=== PATIENT | male | born 1950 | race Caucasian/White ===

== ENCOUNTER 2016-10-27 07:45 | Day surgery (SDC) | payer MEDICARE, BC ==
[~2016-10-27 07:45] MED LIST: Lactated Ringers 1,000 ML IV SCH
[2016-10-27] MEDS: ceFAZolin 2 GM in Premix Bag 1 BAG IV ONE ×2 (09:16→09:17)
[2016-10-27] MEDS ORDERED: Ondansetron 4 MG/2 ML SDV IVPUSH ONE (09:20)
[2016-10-27] MEDS ORDERED: Propofol 200 MG/20 ML SDV IV ONE (09:20)
[2016-10-27] MEDS ORDERED: Lidocaine 2% 100 MG/5 ML Syringe IVPUSH ONE (09:20)
[2016-10-27] MEDS ORDERED: fentaNYL 100 MCG/2 ML SDV IV ONE (09:20)
[2016-10-27] MEDS ORDERED: Midazolam 1 MG/ML 2 ML SDV IV ONE (09:20)
[2016-10-27] MEDS ORDERED: Morphine 10 MG/ML Syringe IVPUSH ONE (09:20)
[2016-10-27] MEDS ORDERED: Bupivacaine 0.5%/EPINEPHrine 1:200,000 50 ML MDV ONE (10:05)
[2016-10-27 13:37] VITALS: BP 111/61
--- NOTE | 2016-10-27 19:38 | OR ---
DATE OF OPERATION: 10/27/2016 SURGEON: Dakotah Yin MD PREOPERATIVE DIAGNOSIS: Scar tissue and suture irritation, right knee status post total knee arthroplasty approximately five months. Preoperatively, this gentleman states he had pain in the inferior medial aspect of the knee that was present on palpation and along the suture line for the medial capsule repair. Despite conservative care, he has not responded well, so we are going to remove the sutures which were placed. The sutures were Ethibond. The patient understands the risks, complications, prognosis, and expectations in the postoperative course and also is aware that this may not alleviate his discomfort completely. DESCRIPTION OF PROCEDURE: The patient was taken to the operating room, placed on the operating room table in supine position. General anesthetic was then administered. Prior to this, 2 g of Ancef were given IV. The patient had a tourniquet placed around the right thigh near the inguinal area. Right lower extremity was then elevated and the tourniquet was inflated to 250 mmHg pressure after sterile ChloraPrep had been performed from the inferior margin of the tourniquet to the tip of the toes. Upon completion of the sterile ChloraPrep and drape, the patient's incision that was made previously was dissected through. We started inferiorly and used approximately half of the incision. Subcutaneous dissection was carried out and two large sutures were noted from the medial aspect and the capsular region going over to the patellar tendon area. These were removed without difficulty. Another suture was also identified and this was removed. The scar tissue was noted in the inferior aspect where he had a previous corticosteroid injection and this was removed without difficulty. This patient had extensive scarring between the patella and subcutaneous tissue that was a result of his slow progress in physical therapy. We loosened all the scar tissue in a circumferential manner inferiorly and superiorly, medially and laterally, so that there was no binding of the patellar tendon or the patella. Thorough irrigation was carried out. We then injected Marcaine with epi and placed a small amount of Gel-Foam in the area we did the capsular release. 0 Vicryl was placed in the subcutaneous tissue, 2-0 superficially, and then mao for skin. Skin was cleansed and dried and sterile dressings applied. Procedure performed as listed above. COMPLICATIONS: None. ESTIMATED BLOOD LOSS: Approximately 200 mL. Excision of scar tissue and retained sutures 1 1/2 x 1 1/2 inches, status post right total knee arthroplasty inferior medial aspect on a capsular closure. /[id number] FELICE/JACKLYN YAO
== END 2016-10-27 12:39 | disposition home or self-care (01) ==
LOC: FB.SDS 07:45
PROVIDERS: ATTEND Orthopaedic Surgery
DX: T85.848A Pain due to other internal prosthetic devices, implants and grafts, initial encounter (principal); L90.5 Scar conditions and fibrosis of skin; I10 Essential (primary) hypertension; Z96.651 Presence of right artificial knee joint; Z88.8 Allergy status to other drugs, medicaments and biological substances; Z79.82 Long term (current) use of aspirin; Z79.84 Long term (current) use of oral hypoglycemic drugs; Z79.899 Other long term (current) drug therapy; Z90.49 Acquired absence of other specified parts of digestive tract; Z98.890 Other specified postprocedural states; Z87.891 Personal history of nicotine dependence; Z72.0 Tobacco use
CPT/HCPCS: 01320; 10120; 82962; J0690; J2250; J2270; J2405; J2704; J3010; J7120

== ENCOUNTER 2020-04-04 16:27 | Emergency (ER) | payer MEDICARE, BC ==
[2020-04-04] MEDS ORDERED: methylPREDNISolone Acetate 40 MG/ML SDV IM ONE (16:53)
--- NOTE | 2020-04-04 17:27 | EDM.PDOC ---
ED HPI GENERAL MEDICAL PROBLEM - General Chief Complaint: Lower Extremity Injury/Pain Stated Complaint: TOE ON RIGHT FOOT HURTING Time Seen by Provider: 04/04/20 17:00 Source of Information: Reports: Patient History Limitations: Reports: No Limitations - History of Present Illness INITIAL COMMENTS - FREE TEXT/NARRATIVE: Patient presented to the ED because of left 2nd toe pain from a previous trauma which was surgically repaired. Every 6 month he has a depomedrol injection to that toe and pain relief usually last for 6 months. - Related Data Allergies Allergy/AdvReac Type Severity Reaction Status Date / Time oxycodone Allergy Mild Stomach Verified 04/04/20 16:38 Ache lisinopril Allergy Cough Verified 04/04/20 16:38 Home Meds: Home Meds Finasteride [Proscar] 5 mg PO DAILY 08/02/13 [History] Multivitamin/Iron/Folic Acid [Centrum Complete Multivit] 1 each PO DAILY 10/03/13 [History] Valsartan/Hydrochlorothiazide [Diovan Hct 320-25 mg Tablet] 1 ea PO DAILY 05/23/16 [History] Tears Away 1 cap PO DAILY 05/25/16 [History] Hydrochlorothiazide 25 mg PO DAILY tablet 05/27/16 [Rx] Allopurinol [Zyloprim] 100 mg PO DAILY 10/26/16 [History] Aspirin 325 mg PO DAILY 10/26/16 [History] metFORMIN HCl [Metformin HCl] 1,000 mg PO DAILY 10/26/16 [History] Past Medical History HEENT History: Reports: Cataract, Impaired Vision Other HEENT History: TINNITIS, EUSTATIAN TUB DYSFUNCTION PER HX Cardiovascular History: Reports: Hypertension Other Respiratory History: pneumonia x 1 Other Gastrointestinal History: chlorinated water causes severe diarrhea, needs bottled water here Genitourinary History: Reports: Prostate Disorder Other Genitourinary History: hx prostate cancer with some surgeries et radiat ion, has developed urgency when needs to go from radiation Musculoskeletal History: Reports: Fracture Neurological History: Reports: Other (See Below) Other Neuro History: TINNITIS Psychiatric History: Reports: None Other Endocrine/Metabolic History: ELEVATED GLUCOSE R/T PREDNISONE. STATES UNABLE TO GET IT DOWN. Oncologic (Cancer) History: Reports: Prostate - Infectious Disease History Infectious Disease History: Reports: Chicken Pox, Measles - Past Surgical History Head Surgeries/Procedures: Reports: None HEENT Surgical History: Reports: None Respiratory Surgical History: Reports: None GI Surgical History: Reports: Appendectomy, Colonoscopy Musculoskeletal Surgical History: Reports: Knee Replacement, Shoulder Surgery Other Musculoskeletal Surgeries/Procedures:: bilat shoulder repair, left knee replacement, right foot surgeries x 2 from accident. RIGHT KNEE ARTHROPLASTY Social & Family History - Family History Family Medical History: No Pertinent Family History HEENT: Reports: Cataract, Glaucoma Cardiac: Reports: Hypertension, [place] Respiratory: Reports: None GI: Reports: None : Reports: None Musculoskeletal: Reports: Osteoporosis Neurological: Reports: TIA Psychiatric: Reports: None Endocrine/Metabolic: Reports: IDDM Hematologic: Reports: None Immunologic: Reports: None Dermatologic: Reports: None Oncologic: Reports: Skin - Caffeine Use Caffeine Use: Reports: Tea Review of Systems - Review of Systems Review Of Systems: See Below Constitutional: Reports: No Symptoms Ears: Reports: No Symptoms Nose: Reports: No Symptoms Mouth/Throat: Reports: No Symptoms Respiratory: Reports: No Symptoms Cardiovascular: Reports: No Symptoms GI/Abdominal: Reports: No Symptoms Musculoskeletal: Reports: Other (left 2nd toe pain) Neurological: Reports: No Symptoms ED EXAM, GENERAL - Physical Exam Exam: See Below Exam Limited By: No Limitations General Appearance: Alert, No Apparent Distress Ears: Normal External Exam, Normal Canal Nose: Normal Inspection, Normal Mucosa, No Blood Throat/Mouth: Normal Inspection, Normal Lips, Normal Teeth Head: Atraumatic, Normocephalic Neck: Normal Inspection, Supple, Non-Tender, Full Range of Motion Respiratory/Chest: No Respiratory Distress, Lungs Clear, Normal Breath Sounds Cardiovascular: Normal Peripheral Pulses, Regular Rate, Rhythm, No Edema, No Gallop GI/Abdominal: Normal Bowel Sounds, Soft, Non-Tender, No Organomegaly Back Exam: Normal Inspection, Full Range of Motion Extremities: Normal Inspection, Normal Range of Motion, Non-Tender, Other (tenderness base of left toe) Neurological: Alert, Oriented, CN II-XII Intact, Normal Cognition Course - Vital Signs Text/Narrative:: The base of the left second toe was sterilized with alcohol swab. A mixture of 1 ml 2% lidocaine and 1 ml of 40 mg depo medrol was injected at the base. Last Recorded V/S: Last Vital Signs Temp 36.6 C 04/04/20 16:34 Pulse 94 04/04/20 16:34 Resp 18 04/04/20 16:34 BP 154/87 H 04/04/20 16:34 Pulse Ox 97 04/04/20 16:34 - Orders/Labs/Meds Meds: Medications Discontinued Medications Generic Name Dose Route Start Last Admin Trade Name Anel PRN Reason Stop Dose Admin Methylprednisolone Acetate 40 mg 04/04/20 16:53 Depo-Medrol IM 04/04/20 16:54 ONETIME ONE Departure - Departure Time of Disposition: 17:30 Disposition: Home, Self-Care 01 Condition: Good Clinical Impression: Arthritis pain - Discharge Information Referrals: Michael Shetty MD [Primary Care Provider] - Additional Instructions: Please read discharge instructions on arthritic pain Take ibuprofen 800 mg with tylenol 1000 mg every 8 hours as needed for pain Follow up as needed Sepsis Event Note (ED) - Focused Exam Vital Signs: Vital Signs Temp Pulse Resp BP Pulse Ox 04/04/20 16:34 36.6 C 94 18 154/87 H 97
[2020-04-04 18:22] VITALS: BP 157/89; PULSE 85
== END 2020-04-04 18:00 | disposition home or self-care (01) ==
LOC: FB.ED 16:27
DX: M19.072 Primary osteoarthritis, left ankle and foot (principal); I10 Essential (primary) hypertension; N42.9 Disorder of prostate, unspecified; Z88.5 Allergy status to narcotic agent; Z88.8 Allergy status to other drugs, medicaments and biological substances; Z79.82 Long term (current) use of aspirin; Z79.899 Other long term (current) drug therapy
CPT/HCPCS: 20605; 96372; 99283; J1030